=== PATIENT | male | born 1980 | race Caucasian/White ===

== ENCOUNTER → 2016-10-01 | Outpatient (CLI) | payer BC ==
[~2016-10-01] MED LIST: ESCITALOPRAM
== END ==
LOC: BHSO 16:17
DX: F41.1 Generalized anxiety disorder (principal)

== ENCOUNTER → 2016-10-12 | Outpatient (CLI) | payer BC | LOC: BHSO 15:59 | DX: F33.2 Major depressive disorder, recurrent severe without psychotic features (principal) ==

== ENCOUNTER → 2016-11-23 | Outpatient (CLI) | payer BC | LOC: BHSO 15:57 | DX: F41.1 Generalized anxiety disorder (principal) ==

== ENCOUNTER → 2017-01-04 | Outpatient (CLI) | payer BC | LOC: BHSO 15:57 | DX: F41.1 Generalized anxiety disorder (principal) ==

== ENCOUNTER → 2017-02-09 | Outpatient (CLI) | payer BC | LOC: BHSO 15:57 | DX: F33.2 Major depressive disorder, recurrent severe without psychotic features (principal) ==

== ENCOUNTER → 2017-03-11 | Outpatient (CLI) | payer BC | LOC: BHSO 15:38 | DX: F41.1 Generalized anxiety disorder (principal) ==

== ENCOUNTER → 2017-03-29 | Outpatient (CLI) | payer BC | LOC: BHSO 16:13 | DX: F33.2 Major depressive disorder, recurrent severe without psychotic features (principal) ==

== ENCOUNTER → 2017-05-31 | Outpatient (CLI) | payer BC | LOC: BHSO 16:00 | DX: F41.1 Generalized anxiety disorder (principal) ==

== ENCOUNTER → 2017-08-26 | Outpatient (CLI) | payer BC | LOC: BHSO 15:38 | DX: F41.1 Generalized anxiety disorder (principal) ==

== ENCOUNTER → 2017-10-06 | Outpatient (CLI) | payer BC | LOC: BHSO 15:59 | DX: F33.2 Major depressive disorder, recurrent severe without psychotic features (principal) ==

== ENCOUNTER → 2017-11-11 | Outpatient (CLI) | payer BC | LOC: BHSO 15:09 | DX: F33.1 Major depressive disorder, recurrent, moderate (principal) ==

== ENCOUNTER → 2017-12-16 | Outpatient (CLI) | payer BC | LOC: BHSO 14:54 | DX: F33.2 Major depressive disorder, recurrent severe without psychotic features (principal) ==

== ENCOUNTER → 2018-01-27 | Outpatient (CLI) | payer BC | LOC: BHSO 15:00 | DX: F33.2 Major depressive disorder, recurrent severe without psychotic features (principal) ==

== ENCOUNTER → 2018-03-15 | Outpatient (CLI) | payer BC | LOC: BHSO 16:01 | DX: F33.1 Major depressive disorder, recurrent, moderate (principal) ==

== ENCOUNTER → 2018-03-24 | Outpatient (CLI) | payer BC | LOC: BHSO 09:28 | DX: F33.42 Major depressive disorder, recurrent, in full remission (principal) | CPT/HCPCS: G0463 ==

== ENCOUNTER → 2018-04-28 | Outpatient (CLI) | payer BC | LOC: BHSO 16:00 | DX: F33.1 Major depressive disorder, recurrent, moderate (principal) ==

== ENCOUNTER → 2018-06-09 | Outpatient (CLI) | payer BC | LOC: BHSO 15:57 | DX: F33.1 Major depressive disorder, recurrent, moderate (principal) ==

== ENCOUNTER → 2018-07-07 | Outpatient (CLI) | payer BC | LOC: BHSO 15:58 | DX: F33.2 Major depressive disorder, recurrent severe without psychotic features (principal) ==

== ENCOUNTER → 2018-08-17 | Outpatient (CLI) | payer BC | LOC: BHSO 15:58 | DX: F33.1 Major depressive disorder, recurrent, moderate (principal) ==

== ENCOUNTER → 2018-09-29 | Outpatient (CLI) | payer BC | LOC: BHSO 15:58 | DX: F33.1 Major depressive disorder, recurrent, moderate (principal) ==

== ENCOUNTER → 2018-10-13 | Outpatient (CLI) | payer BC | LOC: BHSO 16:20 | DX: F33.42 Major depressive disorder, recurrent, in full remission (principal) | CPT/HCPCS: G0463 ==

== ENCOUNTER → 2018-11-01 | Outpatient (CLI) | payer BC | LOC: BHSO 16:01 | DX: F41.1 Generalized anxiety disorder (principal) ==

== ENCOUNTER → 2018-12-13 | Outpatient (CLI) | payer BC | LOC: BHSO 16:00 | DX: F41.1 Generalized anxiety disorder (principal) ==

== ENCOUNTER → 2019-01-19 | Outpatient (CLI) | payer BC | LOC: BHSO 16:00 | DX: F33.1 Major depressive disorder, recurrent, moderate (principal) ==

== ENCOUNTER → 2019-03-02 | Outpatient (CLI) | payer BC | LOC: BHSO 16:01 | DX: F33.1 Major depressive disorder, recurrent, moderate (principal) ==

== ENCOUNTER → 2019-04-12 | Outpatient (CLI) | payer BC | LOC: BHSO 16:02 | DX: F33.1 Major depressive disorder, recurrent, moderate (principal) ==

== ENCOUNTER → 2019-04-13 | Outpatient (CLI) | payer BC | LOC: BHSO 16:20 | DX: F33.42 Major depressive disorder, recurrent, in full remission (principal) | CPT/HCPCS: G0463 ==

== ENCOUNTER → 2019-05-17 | Outpatient (CLI) | payer BC | LOC: BHSO 15:58 | DX: F33.1 Major depressive disorder, recurrent, moderate (principal) ==

== ENCOUNTER → 2019-07-05 | Outpatient (CLI) | payer BC | LOC: BHSO 15:58 | DX: F33.1 Major depressive disorder, recurrent, moderate (principal) ==

== ENCOUNTER → 2019-08-10 | Outpatient (CLI) | payer BC | LOC: BHSO 16:04 | DX: F33.1 Major depressive disorder, recurrent, moderate (principal) ==

== ENCOUNTER → 2019-09-26 | Outpatient (CLI) | payer BC | LOC: BHSO 16:01 | DX: F41.1 Generalized anxiety disorder (principal) ==

== ENCOUNTER → 2019-10-05 | Outpatient (CLI) | payer BC | LOC: BHSO 16:17 | DX: F33.42 Major depressive disorder, recurrent, in full remission (principal) | CPT/HCPCS: G0463 ==

== ENCOUNTER → 2019-11-02 | Outpatient (CLI) | payer BC | LOC: BHSO 16:02 | DX: F33.1 Major depressive disorder, recurrent, moderate (principal) ==

== ENCOUNTER → 2019-12-06 | Outpatient (CLI) | payer BC | LOC: BHSO 16:04 | DX: F33.1 Major depressive disorder, recurrent, moderate (principal) ==

== ENCOUNTER → 2020-01-10 | Outpatient (CLI) | payer BC | LOC: BHSO 16:02 | DX: F33.1 Major depressive disorder, recurrent, moderate (principal) ==

== ENCOUNTER → 2020-02-15 | Outpatient (CLI) | payer BC | LOC: BHSO 16:04 | DX: F33.1 Major depressive disorder, recurrent, moderate (principal) ==

== ENCOUNTER → 2020-03-11 | Outpatient (CLI) | payer BC | LOC: MC.RAD 13:57 | DX: N63.20 Unspecified lump in the left breast, unspecified quadrant (principal) ==

== ENCOUNTER → 2020-04-02 | Outpatient (CLI) | payer BC | LOC: BHSO 16:00 | DX: F41.1 Generalized anxiety disorder (principal) ==

== ENCOUNTER → 2020-05-30 | Outpatient (CLI) | payer BC | LOC: BHSO 16:00 | DX: F33.1 Major depressive disorder, recurrent, moderate (principal) ==

== ENCOUNTER → 2020-07-11 | Outpatient (CLI) | payer BC | LOC: BHSO 16:03 | DX: F41.1 Generalized anxiety disorder (principal) ==